=== PATIENT | female | born 1960 | race Caucasian/White ===

== ENCOUNTER 2018-01-30 13:18 | Observation (INO) | payer OTHER, SELFPAY ==
--- NOTE | 2018-01-24 11:10 | EKG12_ITS ---
Test Reason : PREOP Blood Pressure : / mmHG Vent. Rate : 073 BPM Atrial Rate : 073 BPM P-R Int : 158 ms QRS Dur : 072 ms QT Int : 384 ms P-R-T Axes : 049 -04 011 degrees QTc Int : 423 ms Normal sinus rhythm Possible Left atrial enlargement Borderline ECG Confirmed by KIRBY HERNANDEZ, SUJATA ([id number]), news copy editor DONAL OAKES ([id number]) on 01/27/2018 2:46:02 PM Referred By: Dona Rust Confirmed By:SUJATA ORR MD
[2018-01-24 11:31] LABS: Prothrombin Time (Protime)PT. 13.6 SECONDS (11.7-14.9)
[2018-01-24 11:32] LABS: Partial Thromboplast Time 32.6 Seconds (24.1-36.2)
[2018-01-24 11:37] LABS: Hematocrit 39.1 % (37-47); Hemoglobin 13.3 g/dl (12.0-15.0); Mean Corpuscular Hgb 30.6 pg (27.0-32.0); Mean Corpuscular Volume 89.9 fL (81-99); Mean Platelet Vol. 10.8 fl (6.2-12.0); Platelet Count 229 K/mm3 (150-450); RBC Distribution Width SD 45.7 fl (35.1-43.9); Red Blood Count 4.35 M/mm3 (4.2-5.4); White Blood Count 6.7 K/mm3 (4.4-11.0)
[2018-01-24 11:39] LABS: Scan Indicated on CBC? Y/N NO
[2018-01-24 11:59] LABS: ALB/GLOB Ratio 0.9 RATIO (0.9-2.4); AST(SGOT) 13 U/L (15-37); Alanine Aminotransfer ALT/SGPT 21 U/L (13-56); Albumin, Serum 3.8 g/dL (3.2-5.0); Alkaline Phosphatase 97 U/L (45-117); Anion Gap 7 (5-15); BUN 13 mg/dL (7-18); BUN/Creat Ratio 18.5 RATIO (10-20); Calcium,Total 8.9 mg/dL (8.5-10.1); Chloride 108 mmol/L (98-107); EST Glomerular Filtration Rate 90 mL/min (>60); Est Glom Filt Rate - Afr Amer 109 mL/min (>60); Globulin 4.1 g/dL (2.2-4.2); Glucose 104 mg/dL (74-106); Potassium 4.1 mmol/L (3.5-5.1); Protein, Total 7.9 g/dL (6.4-8.2); Sodium Level 142 mmol/L (136-145)
[2018-01-30] VITALS (12 sets, daily range): BP systolic 107–142; BP diastolic 52–79; PULSE 80–107; RESP 16–20; TEMP 35.9–37.3; O2SAT 91–100; BMI 32.2
--- NOTE | 2018-01-30 10:10 | HYST_PTH ---
PATIENT: GÉNESIS GLODSTEIN LOC: MS3 U#:[id number] AGE/SX: 58/F ROOM: UT323 RE01/30/[address]: Dr. Dona Agustin MD : [id number] BED: 1 DIS: 01/31/2018 SPEC #: [id number] RECD: 01/30/18 15:26 STATUS: SHER LOPEZRaul #: [id number] BO: 01/30/18 10:[address]: Dona Doshi DEPT: SURGICAL PATHOLOGY RECD BY: Abdifatah Garcia ENTERED: 01/31/18 08:45 SP TYPE: HYSTERECT OTHR DR: Edna Rapp, MICA SIZER-C Tissues: Uterus, NOS Procedures: Surgery Specimen Level V HEADER OPERATION: Hysterectomy, lap assisted vaginal, posterior repair, BSO PRE-OP DIAGNOSIS: Uterovaginal prolapse, breast cancer TISSUE SUBMITTED: Uterus, bilateral tubes and ovaries MICROSCOPIC DIAGNOSIS Uterus, bilateral fallopian tubes and ovaries, vaginal hysterectomy and bilateral salpingo-oophorectomy and posterior repair: Cervix ? mild chronic cystic cervicitis. Endometrium ? cystic atrophic endometrium. Endometrial polyp ? benign endometrial polyp with cystic atrophic changes. Myometrium - no pathologic diagnosis. Bilateral fallopian tubes - no pathologic diagnosis. Bilateral ovaries - no pathologic diagnosis. Vaginal mucosa ? fragments of squamous mucosal with minimal chronic inflammation. SJ:lucas 02/03/18 MICROSCOPIC DESCRIPTION Slides are reviewed. GROSS DESCRIPTION Received in fixative is one container labeled with the patient's name and designated uterus. The specimen consists of a uterus with attached cervix and attached right and left fallopian tubes and ovaries. Also present free in the container are three glistening fragments of vaginal mucosa measuring in aggregate 5 x 3 x 0.5 cm. The uterus with cervix measures 9 x 5 x 3.6 cm and weighs 86.7 gm. The ectocervix is grossly unremarkable. The cervical os is oval in contour. The endocervical canal is grossly unremarkable and measures 3 cm in length. The triangular endometrial cavity measures 3 x 2 cm. The anterior endometrial surface contains a flat, pink polyp measuring 2.5 x 1.6 x 0.6 cm. The myometrium immediately beneath the polyp is not indurated. The [place] endometrial surface is light angulo and glistening and measures up to 0.2 cm in thickness. The myometrium measures 1.5 cm in average thickness and is free of mass lesions. The right ovary is pink-angulo and has a crinkled external surface and measures 3 x 2 x 1.2 cm. Serial sections do not reveal mass lesions. The adjacent right fallopian tube measures 6 cm in length and 0.5 cm in average diameter. No tubo-ovarian adhesions are identified. The left ovary is similar in appearance to the right ovary and measures 3 x 2.2 x 1 cm. Serial sections likewise do not reveal mass lesions. The adjacent left fallopian tube is similar in appearance to right fallopian tube and measures 6 cm in length and 0.6 cm in average diameter. A normal fimbriated end is present. Licensing Registration Examiner sections are submitted in ten cassettes as follows: 1 - anterior cervix, 2 - posterior cervix, 3 - anterior uterine wall, 4 & 5 ? anterior uterine wall with polyp, 6 & 7 - posterior uterine wall, 8 ? right fallopian tube and ovary, 9 ? left fallopian tube and ovary, 10 ? vaginal mucosa. Note, the endometrial polyp is submitted in its entirety. / AM:lucas 01/31/18 TC:5 CPT: 94667
[2018-01-30] MEDS: Vasopressin 20 UNITS/ML Vial (10:45)
[2018-01-30] MEDS: Bupivacaine Mpf 0.5% 30 ML VIAL (12:35)
[2018-01-30] MEDS: Ketorolac 30 MG/ML Syringe IV ×2 (13:52→19:39)
[2018-01-30] MEDS: Dextrose 5%-Lactated Ringers 1,000 ML 125 ML IV ×2 (13:55→18:22)
[2018-01-30] MEDS: Enoxaparin 40 MG/0.4 ML Syringe SC (19:39)
[2018-01-30] MEDS: 0.9% NaCl Peripheral Flush Adult/Peds IV (19:39)
--- NOTE | 2018-01-30 21:47 | OP.PCM_ITS ---
Problem List (1) Uterovaginal prolapse, incomplete Status: Acute (2) Rectocele Status: Acute (3) BRCA1 gene mutation positive Status: Acute Report of Operation Date of Procedure: 01/30/18 Pre-Operative Diagnosis: Uterovaginal prolapse, Rectocele, history of ER positive breast cancer, BRCA1 mutation carrier Post-Operative Diagnosis: Uterovaginal prolapse, rectocele, history of ER positive breast cancer, BRCA1 mutation carrier Surgery/Procedure Performed:: Laparoscopic assisted vaginal hysterectomy, Lott 's culdoplasty, bilateral salpingo-oophorectomy, posterior repair, cystoscopy Description of Surgical Findings:: Normal appearing tubes, ovaries and uterus. pressure tank operator: Leatha Rees Anesthesiologist: Ishmael Jackson Specimen's removed: uterus, cervix, tubes and ovaries Drains: Urine 110 ml Estimated Blood Loss (mL): 150 ml Fluids Replaced: 1800 ml Description of Procedure: Indications: Ms. Vela is a 58-year-old para 2 postmenopausal female with a history of ER positive breast cancer and BRCA1 mutation with uterovaginal prolapse and rectocele. She was counseled regarding management options of prolapse and declined observation or pessary. She ultimately opted to proceed with hysterectomy, bilateral salpingo-oophorectomy and posterior repair. Risks , benefits, indications and alternatives of procedure were reviewed at length. Her signed. Procedure: The patient was taken to the operating room and sign was performed. She is placed in dorsal supine position and induced under general anesthesia and intubated. She is then repositioned to dorsolithotomy and examination under anesthesia was performed. The perineum and abdomen were prepped and draped in sterile fashion. Pascual catheter was placed into the bladder. Timeout was performed. The patient was placed into high lithotomy weighted speculum placed in the vagina and the cervix grasped the anterior cervical lip using a single-tooth tenaculum. A Conn cannula was placed and secured to the tenaculum for uterine manipulation. The speculum was removed from the vagina and the patient placed into low lithotomy. Attention was turned to the abdomen. An infraumbilical incision was made and Veress needle was placed with successful hanging drop test and no aspirate. The abdomen was insufflated to 15 mmHg. The Veress needle was removed and the 5 mm port was placed under laparoscopic guidance confirming entry into the abdominal cavity. A second and third incisions were made in the right and left lower quadrants respectively followed by 5 mm port placement at those sites. The patient was placed into an Trendelenburg and the abdomen was normal-appearing and on inspection. Attention was then turned to the left adnexa and the infundibulopelvic ligament was clamped coagulated and cut using the Enseal device and salpingo- oophorectomy performed. The round ligament was coagulated and cut. The anterior broad ligament was opened and the uterine vessels skeletonized. The bladder flap was created the broad ligament was taken down using Enseal device. The ureter was visualized on the left. The uterine vessels were coagulated. In similar fashion attention was turned to the right and salpingo-oophorectomy was performed along with opening of the broad ligament, uterine vessel skeletonization and completion of the bladder flap. The uterine vessels were coagulated at the level of the cervix. Attention was then turned to the pelvis and the abdomen was desufflated. The patient was placed into high lithotomy and the Herve cannula was removed. A circumferential incision was made around the cervix and the vesicouterine space was developed and the anterior cul-de-sac peritoneum was identified and sharply entered. Curved Teresa was placed at the site. Attention was turned to the posterior vagina and the posterior cul-de-sac was entered sharply using curved King scissors. A weighted speculum was placed into the posterior cul-de-sac. The uterosacral ligament were Barbie clamped cut and suture ligated using 0 Vicryl. Similarly this was done using the at the cardinal ligament and the uterine vessels with a delivery of the uterus and cervix with the tubes and ovaries en bloc. Lott culdoplasty was performed using 2-0 Prolene x 2 internally and 0 Vicryl externally. The vaginal cuff was reapproximated using 0 Vicryl serial figure of 8 sutures. The Lott's external sutures were then tied. Proceeded with the rectocele repair. A transverse incision was made the introitus where it meets the peritoneum and at midline the vaginal mucosa was dissected from the underlying supportive tissue using Metzenbaum scissors. Midline cut was made using the Metzenbaum scissors above the level of the rectocele sac. The sac was dissected from the underlying fascia and the rectocele was reduced with reapproximation of the fascial tissue using 2-0 Vicryl simple interrupted sutures. Excess vaginal tissue was excised. The vagina hernia and were reapproximated using 0 Vicryl. He was then performed demonstrating E flux out of bilateral ureters. There is no evidence of suture within the bladder following global visualization. There was turned to the abdomen and the skin was closed using 4-0 Monocryl. Additional 10 cc of 1% lidocaine was injected locally for additional analgesia. Steri-Strips and OpSite dressings were placed over the incisions. Patient was then repositioned to dorsal supine position, awakened, extubated and transferred to the recovery room without complication. Sponge, instrument and needle counts were correct ?2. The patient tolerated the procedure well. - Admit VTE Documentation VTE Present on Admission: No VTE Mechan Device Prophylaxis: SCD's VTE Pharm Prophylaxis ordered?: No
--- NOTE | 2018-01-30 22:37 | PCM.PN.OB ---
Patient Problems: Active and Suspected Problems (Last Reviewed 11/20/17 @ 11:08 by Dahlia Estrada) Uterovaginal prolapse, incomplete (Acute) Rectocele (Acute) Subjective: Pain is minimal. OOB and steady on her feet. Tolerated a regular diet for dinner. No flatus yet. No complaints. Objective: AVSS - Physical Exam General: Alert, Oriented x3, Cooperative, No apparent distress HEENT: Atraumatic, Normocephalic Abdomen: Soft, Non Tender, Non-Distended Extremities: No edema, No Calf Tenderness Neurological: Neuro grossly intact Psych/Mental Status: Normal Affect, Appropriate, Alert and oriented to time, place, person, mood and affect Vital Signs Temp Pulse Resp BP Pulse Ox 99.2 F H 107 H 16 130/71 H 97 01/30/18 18:33 01/30/18 18:33 01/30/18 18:33 01/30/18 18:33 01/30/18 18:33 Oxygen Delivery Method Room Air Weight: 85.2 kg Body Mass Index (BMI) 32.2 Intake and Output for Last 24 Hours 01/28/18 01/29/18 01/30/18 23:59 23:59 23:59 Intake Total 3171 / 3171 Output Total 1375 / 1375 Balance 1796 / 1796 Medical Necessity - Tobacco Use Smoking Status: Never smoker Tobacco Use: Non-smoker Assessment/Plan Active and Suspected Problems (Last Reviewed 11/20/17 @ 11:08 by Dahlia Estrada) Uterovaginal prolapse, incomplete (Acute) Rectocele (Acute) 58yo s/p LAVH, BS, posterior repair doing well. -Routine postop care -Abundant urine output, d/c IV fluids
[2018-01-31] MEDS: 0.9% NaCl Peripheral Flush Adult/Peds IV (01:53)
[2018-01-31] MEDS: Ketorolac 30 MG/ML Syringe IV (01:54)
[2018-01-31 02:15] VITALS: BP 134/73; PULSE 92; RESP 18; TEMP 36.7; O2SAT 97
[2018-01-31 06:14] LABS: Hematocrit 34.8 % (37-47); Hemoglobin 11.5 g/dl (12.0-15.0); Mean Corpuscular Hgb 29.8 pg (27.0-32.0); Mean Corpuscular Volume 90.2 fL (81-99); Mean Platelet Vol. 10.6 fl (6.2-12.0); Platelet Count 191 K/mm3 (150-450); RBC Distribution Width CV 13.8 % (11.6-14.6); RBC Distribution Width SD 45.4 fl (35.1-43.9); Red Blood Count 3.86 M/mm3 (4.2-5.4); White Blood Count 10.9 K/mm3 (4.4-11.0)
[2018-01-31 06:20] LABS: Scan Indicated on CBC? Y/N NO
[2018-01-31 07:39] VITALS: BP 122/68; PULSE 62; RESP 18; TEMP 36.7; O2SAT 98
[2018-01-31] MEDS: Ketorolac 10 MG Tablet PO ×2 (07:43→11:28)
[2018-01-31 07:57] VITALS: O2SAT 97
--- NOTE | 2018-01-31 07:59 | PCM.DC.VHY ---
Discharge Diet: No Restrictions Discharge Activity: Return to Normal Activity, May not drive while taking narcotic pain medications., May Shower, - - No tub bath for 2 weeks May resume sexual activity in: 6 weeks Lifting Restrictions: 10 lb Call your doctor if your incision/area has: Continuous Slow Oozing, Sudden Increased Bleeding, Increased Pain/ Swelling, Increased Redness, Foul Smelling Discharge Call your doctor if you observe: Fever of 101 or Higher, Inability to urinate, Inability to have a bowel movement, Using more than one pad per hour, Shortness of breath, Chest pain, Calf discomfort, Uncontrolled pain Suture Line Care: Avoid Pulling/Pushing Remove Dressing in (days):: 1 - Remove outer dressing Cleanse incision/area with: Soap & Water Additional Dressing/Incision Instructions:: Remove steristrips in shower 3-5 days after surgery Allergies/Adverse Reactions: Allergies morphine Allergy (Verified 01/23/18 10:13) Hives Medications to take at Discharge Anastrozole [Arimidex] 1 mg PO DAILY #30 tab 07/24/17 Docusate Sodium [Colace] 100 mg PO BID PRN PRN #60 cap 01/30/18 Hydrocodone Bitart/Apap 5-325 [[place] 5/325] 1 - 2 tablet PO Q4H PRN PRN 3 Days #28 tablet 01/30/18 Ibuprofen 600 mg PO TID PRN #30 tab 01/30/18 The following prescriptions were given: Hydrocodone Bitart/Apap 5-325 [[place] 5/325] 1 - 2 tablet PO Q4H PRN PRN 3 Days #28 tablet PRN Reason: Mod-Severe Pain (-07/16) Docusate Sodium [Colace] 100 mg PO BID PRN PRN #60 cap PRN Reason: Constipation Ibuprofen 600 mg PO TID PRN #30 tab PRN Reason: Pain Primary Care Physician: Edna Rapp NP-C [Primary Care Provider] - Please Follow Up With: Dona Rust MD When: 1-2 weeks
--- NOTE | 2018-01-31 08:02 | DCINST_ITS ---
Discharge Diet: No Restrictions Discharge Activity: Return to Normal Activity, May not drive while taking narcotic pain medications., May Shower, - - No tub bath for 2 weeks May resume sexual activity in: 6 weeks Lifting Restrictions: 10 lb Call your doctor if your incision/area has: Continuous Slow Oozing, Sudden Increased Bleeding, Increased Pain/ Swelling, Increased Redness, Foul Smelling Discharge Call your doctor if you observe: Fever of 101 or Higher, Inability to urinate, Inability to have a bowel movement, Using more than one pad per hour, Shortness of breath, Chest pain, Calf discomfort, Uncontrolled pain Suture Line Care: Avoid Pulling/Pushing Remove Dressing in (days):: 1 - Remove outer dressing Cleanse incision/area with: Soap & Water Additional Dressing/Incision Instructions:: Remove steristrips in shower 3-5 days after surgery Allergies/Adverse Reactions: Allergies morphine Allergy (Verified 01/23/18 10:13) Hives Medications to take at Discharge Anastrozole [Arimidex] 1 mg PO DAILY #30 tab 07/24/17 Docusate Sodium [Colace] 100 mg PO BID PRN PRN #60 cap 01/30/18 Hydrocodone Bitart/Apap 5-325 [[place] 5/325] 1 - 2 tablet PO Q4H PRN PRN 3 Days # 28 tablet 01/30/18 Ibuprofen 600 mg PO TID PRN #30 tab 01/30/18 The following prescriptions were given: Hydrocodone Bitart/Apap 5-325 [[place] 5/325] 1 - 2 tablet PO Q4H PRN PRN 3 Days # 28 tablet PRN Reason: Mod-Severe Pain (-07/16) Docusate Sodium [Colace] 100 mg PO BID PRN PRN #60 cap PRN Reason: Constipation Ibuprofen 600 mg PO TID PRN #30 tab PRN Reason: Pain Primary Care Physician: Edna Rapp NP-C [Primary Care Provider] - Please Follow Up With: Dona Rust MD When: 1-2 weeks
--- NOTE | 2018-01-31 08:02 | PCM.DC.SUM ---
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 She underwent a laparoscopic assisted vaginal hysterectomy with bilateral salpingo-oophorectomy and culdoplasty, rectocele repair and cystoscopy. Her post-operative course was unremarkable and she was discharged to home on post-operative day #1. Discharge Diet: No Restrictions Discharge Activity: Return to Normal Activity, May not drive while taking narcotic pain medications., May Shower, - - No tub bath for 2 weeks May resume sexual activity in: 6 weeks Call your doctor if your incision/area has: Continuous Slow Oozing, Sudden Increased Bleeding, Increased Pain/ Swelling, Increased Redness, Foul Smelling Discharge Call your doctor if you observe: Fever of 101 or Higher, Inability to urinate, Inability to have a bowel movement, Using more than one pad per hour, Shortness of breath, Chest pain, Calf discomfort, Uncontrolled pain Suture Line Care: Avoid Pulling/Pushing Remove Dressing in (days):: 1 - Remove outer dressing Cleanse incision/area with: Soap & Water Additional Dressing/Incision Instructions:: Remove steristrips in shower 3-5 days after surgery Home Medications: Medications to take at Discharge Anastrozole [Arimidex] 1 mg PO DAILY #30 tab 07/24/17 Docusate Sodium [Colace] 100 mg PO BID PRN PRN #60 cap 01/30/18 Hydrocodone Bitart/Apap 5-325 [[place] 5/325] 1 - 2 tablet PO Q4H PRN PRN 3 Days #28 tablet 01/30/18 Ibuprofen 600 mg PO TID PRN #30 tab 01/30/18 Following Prescrptions Were Given to Patient: Hydrocodone Bitart/Apap 5-325 [[place] 5/325] 1 - 2 tablet PO Q4H PRN PRN 3 Days #28 tablet PRN Reason: Mod-Severe Pain (-07/16) Docusate Sodium [Colace] 100 mg PO BID PRN PRN #60 cap PRN Reason: Constipation Ibuprofen 600 mg PO TID PRN #30 tab PRN Reason: Pain Primary Care Physician: Edna Rapp NP-C [Primary Care Provider] - Please Follow Up With: Dona Rust MD When: 1-2 weeks Medical Necessity - Tobacco Use Smoking Status: Never smoker Tobacco Use: Non-smoker Meaningful Use Info Meaningful Use Diagnoses (Choose all that apply): None applicable
--- NOTE | 2018-01-31 08:05 | DS.PCM_ITS ---
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 She underwent a laparoscopic assisted vaginal hysterectomy with bilateral salpingo-oophorectomy and culdoplasty, rectocele repair and cystoscopy. Her post-operative course was unremarkable and she was discharged to home on post-operative day #1. Discharge Diet: No Restrictions Discharge Activity: Return to Normal Activity, May not drive while taking narcotic pain medications., May Shower, - - No tub bath for 2 weeks May resume sexual activity in: 6 weeks Call your doctor if your incision/area has: Continuous Slow Oozing, Sudden Increased Bleeding, Increased Pain/ Swelling, Increased Redness, Foul Smelling Discharge Call your doctor if you observe: Fever of 101 or Higher, Inability to urinate, Inability to have a bowel movement, Using more than one pad per hour, Shortness of breath, Chest pain, Calf discomfort, Uncontrolled pain Suture Line Care: Avoid Pulling/Pushing Remove Dressing in (days):: 1 - Remove outer dressing Cleanse incision/area with: Soap & Water Additional Dressing/Incision Instructions:: Remove steristrips in shower 3-5 days after surgery Home Medications: Medications to take at Discharge Anastrozole [Arimidex] 1 mg PO DAILY #30 tab 07/24/17 Docusate Sodium [Colace] 100 mg PO BID PRN PRN #60 cap 01/30/18 Hydrocodone Bitart/Apap 5-325 [[place] 5/325] 1 - 2 tablet PO Q4H PRN PRN 3 Days # 28 tablet 01/30/18 Ibuprofen 600 mg PO TID PRN #30 tab 01/30/18 Following Prescrptions Were Given to Patient: Hydrocodone Bitart/Apap 5-325 [[place] 5/325] 1 - 2 tablet PO Q4H PRN PRN 3 Days # 28 tablet PRN Reason: Mod-Severe Pain (-07/16) Docusate Sodium [Colace] 100 mg PO BID PRN PRN #60 cap PRN Reason: Constipation Ibuprofen 600 mg PO TID PRN #30 tab PRN Reason: Pain Primary Care Physician: Edna Rapp NP-C [Primary Care Provider] - Please Follow Up With: Dona Rust MD When: 1-2 weeks Medical Necessity - Tobacco Use Smoking Status: Never smoker Tobacco Use: Non-smoker Meaningful Use Info Meaningful Use Diagnoses (Choose all that apply): None applicable
--- NOTE | 2018-01-31 08:35 | PCM.PN.OB ---
Patient Problems: Active and Suspected Problems (Last Reviewed 11/20/17 @ 11:08 by Dahila Estrada) Uterovaginal prolapse, incomplete (Acute) Rectocele (Acute) Subjective: No issues overnight. Shweta feels well this morning and has a good appetite. Tolerated regular breakfast and is passing gas. Pascual removed this morning, but no void yet. Denies chest pain, shortness of breath. Objective: AVSS - Physical Exam General: Alert, Oriented x3, Cooperative, No apparent distress HEENT: Atraumatic, Normocephalic Lungs: Clear to auscultation, Normal air movement Cardiovascular: Regular rate, Regular Rhythm, Normal S1, Normal S2 Abdomen: Bowel Sounds Present, Soft, Non Tender, Non-Distended Extremities: No edema, No Calf Tenderness Neurological: Neuro grossly intact Psych/Mental Status: Normal Affect, Appropriate, Alert and oriented to time, place, person, mood and affect Vital Signs Temp Pulse Resp BP Pulse Ox 98.0 F 62 18 122/68 H 97 01/31/18 07:39 01/31/18 07:39 01/31/18 07:39 01/31/18 07:39 01/31/18 07:57 Oxygen Delivery Method Room Air Weight: 85.2 kg Body Mass Index (BMI) 32.2 Intake and Output for Last 24 Hours 01/29/18 01/30/18 01/31/18 23:59 23:59 23:59 Intake Total 3171 / 3171 3303 / 3303 Output Total 1375 / 1375 3700 / 3700 Balance 1796 / 1796 -397 / -397 Laboratory Tests Past 24 Hrs 01/31/18 05:15 WBC 10.9 RBC 3.86 L Hgb 11.5 L Hct 34.8 L MCV 90.2 MCH 29.8 MCHC 33.0 RDW 13.8 RDW Differential 45.4 H Plt Count 191 MPV 10.6 Medical Necessity - Tobacco Use Smoking Status: Never smoker Tobacco Use: Non-smoker Assessment/Plan Active and Suspected Problems (Last Reviewed 11/20/17 @ 11:08 by Dahlia Estrada) Uterovaginal prolapse, incomplete (Acute) Rectocele (Acute) 58yo POD#1 s/p LAVH, BS, posterior repair doing well. -Routine postop care -Voiding trial -Anticipate d/c later today
[2018-01-31 12:12] VITALS: BP 131/72; PULSE 74; RESP 18; TEMP 36.7; O2SAT 98
== END 2018-01-31 13:10 | disposition home or self-care (01) ==
LOC: SDC 14:02 → MS3 01-31 06:23
PROVIDERS: Admitting Provider Obstetrics & Gynecology; Family Provider Nurse Practitioner Primary Care; PCP Nurse Practitioner Primary Care; Visit Provider Obstetrics & Gynecology
PROC: 0UT9FZZ Resection of Uterus, Via Natural or Artificial Opening With Percutaneous Endoscopic Assistance (ICD-10-PCS; CPT 57250; principal; 2018-01-30 09:45)
DX: N81.2 Incomplete uterovaginal prolapse (principal); Z85.3 Personal history of malignant neoplasm of breast; Z17.0 Estrogen receptor positive status [ER+]; Z92.3 Personal history of irradiation; Z85.828 Personal history of other malignant neoplasm of skin; Z79.899 Other long term (current) drug therapy
CPT/HCPCS: 57250; 57268; 58552; 36415; 80053; 85027; 85610; 85730; 86850; 86900; 88307; 93005; 96361; 96372; 96374; 96376; 99218; J7120; A4216; G0378; G0379

== ENCOUNTER → 2018-03-11 11:15 | Outpatient (CLI) | payer OTHER, SELFPAY ==
--- NOTE | 2018-03-11 11:15 | DT_ITS ---
This patient was seen during an EMR downtime March 10, 2018 - March 17, 2018. This patient may have a combination of paper and electronic documentation or all paper documentation. All documentation is viewable within the e-chart portion of [facility] for each patient visit.
== END ==
PROVIDERS: Family Provider Nurse Practitioner Primary Care; PCP Nurse Practitioner Primary Care; Visit Provider Obstetrics & Gynecology
DX: N39.0 Urinary tract infection, site not specified (principal)
CPT/HCPCS: 87086; 87088

== ENCOUNTER → 2018-05-30 13:12 | Outpatient (CLI) | payer OTHER, SELFPAY | PROVIDERS: Visit Provider Nurse Practitioner Family | DX: R22.2 Localized swelling, mass and lump, trunk (principal); Z85.3 Personal history of malignant neoplasm of breast | CPT/HCPCS: 71552; A9585 ==

== ENCOUNTER → 2018-12-08 10:35 | Outpatient (CLI) | payer OTHER, SELFPAY ==
[2018-12-03 12:59] VITALS: BMI 32.8
[2018-12-08 11:07] LABS: Bacteria 0 SEEN /hpf (None Seen); Mucous, Urine 0 SEEN /hpf (<or=2+); White Blood Cells 0 SEEN /hpf (0-5)
[2018-12-08 14:01] LABS: Color, Urine Yellow (Yellow); Glucose, Dipstick Normal (Normal); Ketone-Dipstick Negative (Negative); Leukocyte Esterase-Dipstick Negative /ul (Negative); Nitrite-Dipstick Negative (Negative); Occult Blood-Urine 25 /ul (Negative); Protein-Dipstick Negative (Negative); Urine Bilirubin Dipstick Negative (Negative); Urine Clarity Clear (Clear); Urine Urobilinogen Normal (Normal)
[2018-12-08 14:03] LABS: Red Blood Cells-Urine 0-5 SEEN /hpf (0-5); Squamous Epithelial Cells - UA 0-5 SEEN /hpf (5-10)
== END ==
PROVIDERS: Visit Provider Obstetrics & Gynecology
DX: N39.0 Urinary tract infection, site not specified (principal)
CPT/HCPCS: 81001; 87086; 87088

== ENCOUNTER → 2019-01-01 12:45 | Outpatient (CLI) | payer OTHER, SELFPAY ==
[2018-12-03 12:59] VITALS: BMI 32.8
--- NOTE | 2019-01-01 12:48 | CT_ITS ---
STUDY: CT ABDOMEN AND PELVIS WITHOUT CONTRAST REASON FOR EXAM: Female, 58 years old. Left-sided abdominal pain. History of prior hysterectomy and a bilateral breast cancers. RADIATION DOSAGE (If Supplied By Facility): CTDIvol = ( 11.09 ) mGy, DLP = ( 758.85 ) mGycm TECHNIQUE: Transaxial images were obtained from the dome of the diaphragm to the symphysis pubis with oral contrast, and without intravenous contrast. Sagittal and coronal images were reconstructed. Individualized dose optimization techniques were used for this CT. COMPARISON: None. FINDINGS: The visualized lung bases are unremarkable. The visualized portions of the heart are within normal limits. There is a 1.3 cm x 1.5 cm cyst in the inferior lateral aspect of the left lobe of the liver. Normal gallbladder and extrahepatic biliary system. Normal spleen. Normal pancreas. Normal bilateral adrenal glands. Mild degree of bilateral hydronephrosis slightly worse on the left side. Normal visualized stomach. Normal small intestine. Normal colon. There is non-visualization of the appendix. There is scattered atherosclerotic calcification of the abdominal aorta, without a demonstrated aneurysm. Normal inferior vena cava. Normal retroperitoneum. The urinary bladder is empty. There is absence of the uterus consistent with a prior hysterectomy. Phleboliths are seen in the pelvis. There is a small umbilical hernia containing fat. Normal osseous structures. CT/Abdomen/Pelvis without Cont IMPRESSION: Mild degree of bilateral hydronephrosis slightly worse on the left side. Small cyst in the left lobe of the liver. Electronically Signed: Hema Gonzales, at 12:59 EDT , Service support ,
== END ==
PROVIDERS: Family Provider Nurse Practitioner Primary Care; PCP Nurse Practitioner Primary Care; Referring Provider Obstetrics & Gynecology; Visit Provider Obstetrics & Gynecology
DX: R10.9 Unspecified abdominal pain (principal); R19.00 Intra-abdominal and pelvic swelling, mass and lump, unspecified site
CPT/HCPCS: 74176

== ENCOUNTER 2019-04-12 15:32 | Inpatient (IN) | payer OTHER, SELFPAY ==
[2018-12-03 12:59] VITALS: BMI 32.8
[2019-04-12] VITALS (21 sets, daily range): BP systolic 110–140; BP diastolic 47–75; PULSE 80–99; RESP 11–23; TEMP 36.4–37.3; O2SAT 98–100; BMI 30.9; BMI 30.7
--- NOTE | 2019-04-12 16:16 | CT_ITS ---
STUDY: CT ABDOMEN AND PELVIS WITH CONTRAST REASON FOR EXAM: Female, 59 years old. Abdominal pain. Dark stools. Weakness, jaundice, elevated LFTs. Low hemoglobin. Bilateral breast CA. RADIATION DOSAGE (If Supplied By Facility): CTDIvol = ( 12.86 ) mGy, DLP = ( 805.83 ) mGycm TECHNIQUE: Transaxial images were obtained from the dome of the diaphragm to the symphysis pubis without oral contrast. 100 IV/Oral Isovue 300 was administered. Sagittal and coronal images were reconstructed. Individualized dose optimization techniques were used for this CT. COMPARISON: 01/01/2019. FINDINGS: Lung bases are clear. Visualized heart is normal. There is marked intrahepatic biliary duct dilation, new compared to the prior study. Stable 1.6 cm cyst is noted in the lateral segment. No hepatic mass is identified. Mild hepatic hilar adenopathy measures up to 9 mm in short axis. There is no extrahepatic biliary duct dilation. Distal common duct measures 5 mm. The gallbladder is contracted. There is a 5.1 x 2.8 cm pancreatic tail mass. This was not seen on the prior noncontrast study. There is no pancreatic duct dilation. The spleen and adrenal glands are unremarkable. Renal parapelvic cysts are noted bilaterally. The kidneys are otherwise unremarkable. No stones or hydronephrosis. The aorta is normal in caliber. There is trace free fluid in the pelvis. No free air or organized collection. No bowel obstruction or inflammatory change. Normal appendix. Urinary bladder is unremarkable. Normal abdominal wall. Normal osseous structures. CT/Abdomen/Pelvis WITH Contrast IMPRESSION: 1. A 5 cm pancreatic tail mass. 2. Marked intrahepatic biliary duct dilation, possibly due to lymph node or choledochal /metastasis. Dr. Chase discussed the findings with Dr. Bailey at 6:56 PM. N.B. : The above information has been verbally conveyed by Arleen Chase MD to Dr. Devi Bailey MD, on 04/12/2019 18:57:01 (ET). Electronically Signed: Arleen Chase MD at 18:58 EDT Tel , Service support ,
--- NOTE | 2019-04-12 16:17 | ED.VIS.GEN ---
History of Present Illness Chief Complaint: General Illness Detail of Chief Complaint: Abdominal pain, jaundice, itching Informant: Patient, Family Onset: Month(s) Narrative: Patient has history of bilateral breast cancer and skin cancer. Patient states that she has had continued chronic abdominal pain with no significant definitive cause being found for several months. Over the past 2 or 3 weeks she has had itching and saw her primary care physician. At that time is felt to be secondary to allergies and was given a course of prednisone and Vistaril. Patient states of the last 4 to 7 days her skin has become more yellow in color. She states overall she just does not feel well. She has had prior hysterectomy and bilateral oophorectomy. CT scan from December of this year was reviewed and did not show any acute changes in the gallbladder or pancreas. - Past Medical History (1) Breast cancer, right Status: Acute (2) Mass of chest wall, left Status: Acute (3) Rectocele Status: Acute (4) Cancer of left breast Status: Chronic Past Medical History - Allergies and Home Meds Allergies/Adverse Reactions: Allergies morphine Allergy (Verified 04/12/19 15:37) Hives Prior records reviewed: Yes Past Medical History: - - Reviewed Surgical History: hysterectomy Lives: Spouse/ Significant Other Smoking Status: Former smoker - Family History Maternal Family History: Family History (Last Reviewed 12/03/18 @ 12:58 by Dahlia Estrada) Sister Breast cancer Sister Breast cancer Family History: Reports: Unknown Review of Systems General: Denies: Chills, Fever Cardiovascular: Denies: Chest pain, Palpitations, Heart racing Respiratory: Reports: Dyspnea, - - Dyspnea on exertion.. Denies: Cough, Sputum Gastrointestinal: Reports: Abdominal pain, - - Stools appear dark in color.. Denies: Nausea, Vomiting, Diarrhea Genitourinary: Reports: - - Urine appears dark.. Denies: Dysuria Skin: Reports: Rash Neurological: Denies: Headache Physical Exam Vital Signs/Narrative: Vital Signs Temp Pulse Resp BP Pulse Ox 04/12/19 16:01 81 11 L 125/63 H 100 04/12/19 15:35 97.6 F L 91 18 117/66 100 General: Well nourished, Well developed Head: Normocephalic, Atraumatic Eyes: Scleral icterus ENT: Moist mucous membranes Cardiovascular: Regular rate, Regular rhythm Respiratory: No distress, CTA bilaterally Abdomen: Soft, - - Mild diffuse tenderness palpation with no guarding or rebound. Hypoactive but present bowel sounds are noted. Extremities: Nontender Skin: Jaundice, - - Superficial abrasions from scratching with her pruritus are noted to the extremities and upper chest. Neurological: Alert, Oriented x3 Psychological: Normal affect Diagnostic/Tx/Re-eval Abnormal Lab Results 04/12/19 04/12/19 04/12/19 16:11 16:11 16:40 WBC 7.7 RBC 2.21 L Hgb 5.5 L* Hct 18.0 L MCV 81.4 MCH 24.9 L MCHC 30.6 L RDW 16.4 H RDW Differential 48.8 H Plt Count 294 MPV 11.4 Immature Gran % (Auto) 0.800 Neut % (Auto) 76.4 H Lymph % (Auto) 15.3 L [place] % (Auto) 6.5 Eos % (Auto) 0.7 Baso % (Auto) 0.3 Absolute Neuts (auto) 5.9 Absolute Lymphs (auto) 1.17 Total Counted Not Reportable Sodium 138 Potassium 3.2 L Chloride 105 Carbon Dioxide 24.0 Anion Gap 9 BUN 17 Creatinine 0.58 Estim Creat Clear Calc 87.96 Est GFR (MDRD) Af Amer 135 Est GFR (MDRD) Non-Af 111 BUN/Creatinine Ratio 29.1 H Glucose 140 H Calcium 8.0 L Total Bilirubin 5.40 H Direct Bilirubin 4.76 H AST 42 H ALT 149 H Alkaline Phosphatase 273 H Total Protein 5.8 L Albumin 2.6 L Globulin 3.2 Lipase 135 Urine Color Yellow Urine Clarity Clear Urine pH 6.5 Ur Specific [place] 1.005 Urine Protein Negative Urine Glucose (UA) Normal Urine Ketones Negative Urine Occult Blood 10 H Urine Nitrite Positive H Urine Bilirubin 3 H Urine Urobilinogen 1 H Ur Leukocyte Esterase 100 H Urine RBC 0 SEEN Urine WBC 0-5 SEEN Ur Squamous Epith Cells 0 SEEN Urine Bacteria 2+ Urine Mucus 0 SEEN Blood Type Antibody Screen Crossmatch 04/12/19 16:57 WBC RBC Hgb Hct MCV MCH MCHC RDW RDW Differential Plt Count MPV Immature Gran % (Auto) Neut % (Auto) Lymph % (Auto) [place] % (Auto) Eos % (Auto) Baso % (Auto) Absolute Neuts (auto) Absolute Lymphs (auto) Total Counted Sodium Potassium Chloride Carbon Dioxide Anion Gap BUN Creatinine Estim Creat Clear Calc Est GFR (MDRD) Af Amer Est GFR (MDRD) Non-Af BUN/Creatinine Ratio Glucose Calcium Total Bilirubin Direct Bilirubin AST ALT Alkaline Phosphatase Total Protein Albumin Globulin Lipase Urine Color Urine Clarity Urine pH Ur Specific [place] Urine Protein Urine Glucose (UA) Urine Ketones Urine Occult Blood Urine Nitrite Urine Bilirubin Urine Urobilinogen Ur Leukocyte Esterase Urine RBC Urine WBC Ur Squamous Epith Cells Urine Bacteria Urine Mucus Blood Type O NEGATIVE Antibody Screen NEGATIVE Crossmatch See Detail Clinical Impression(s) from Imaging Studies Abdomen/Pelvis CT 04/12/19 16:16 IMPRESSION: 1. A 5 cm pancreatic tail mass. 2. Marked intrahepatic biliary duct dilation, possibly due to lymph node or choledochal /metastasis. Dr. Chase discussed the findings with Dr. Bailey at 6:56 PM. N.B. : The above information has been verbally conveyed by Arleen Chase MD to Dr. Devi Bailey MD, on 04/12/2019 18:57:01 (ET). Electronically Signed: Arleen Chase MD at 18:58 EDT Tel , Service support , ADDENDUM: 04/12/19 1905 IMPRESSION: 1. A 5 cm pancreatic tail mass. 2. Marked intrahepatic biliary duct dilation, possibly due to lymph node or choledochal /metastasis. Dr. Chase discussed the findings with Dr. Bailey at 6:56 PM. N.B. : The above information has been verbally conveyed by Arleen Chase MD to Dr. Devi Bailey MD, on 04/12/2019 18:57:01 (ET). Electronically Signed: Arleen Chase MD at 18:58 EDT Tel , Service support , Stool guaiac performed was negative. - Medical Decision Making Test results were discussed with patient and at bedside. She has seen Dr. Schwab here locally for cancer care. I spoke with Dr. Jara, on-call. He states that typically they would not admit the patient to get a biopsy, but because she is anemic and is getting blood she would need to be admitted. He asked that I ensure Dr. Palmer will be in town this week to perform an EGD and possible brushings from the ducts. I spoke with Dr. uL and as far as he knows her Estela will be available this week. I spoke with hospitalist regarding admission. ED Disposition - Plan for ED Patient: Disposition: Acute Care Hospital [facility] Diagnosis: Jaundice, Anemia, Pancreatic mass
[2019-04-12] MEDS: 0.9% Normal Saline 1,000 ML 150 ML IV ×2 (16:41→23:31)
[2019-04-12 16:44] LABS: Mucous, Urine 0 SEEN /hpf (<or=2+); Red Blood Cells-Urine 0 SEEN /hpf (0-5); Squamous Epithelial Cells - UA 0 SEEN /hpf (5-10)
[2019-04-12 16:48] LABS: Absolute Lymphocyte Count 1.17 X10^3/ul (0.83-4.51); Absolute Neutrophil Count 5.9 X10^3/uL (2.0-7.7); Basophil# 0.02 X10^3/uL; Basophil% 0.3 % (0-1); Eosinophil# 0.05 X10^3/uL; Eosinophils% 0.7 % (0-5); Lymphocyte # 1.17 X10^3/ul (4.0); Lymphocyte % 15.3 % (19-41); Mean Corp Hgb Conc 30.6 g/gl (32-36); Mean Corpuscular Hgb 24.9 pg (27.0-32.0); Mean Corpuscular Volume 81.4 fL (81-99); Mean Platelet Vol. 11.4 fl (6.2-12.0); Monocyte% 6.5 % (0-10); Neutrophil # 5.85 X10^3/uL (2.7-7.7); Neutrophil % 76.4 % (47-70); Platelet Count 294 K/mm3 (150-450); RBC Distribution Width CV 16.4 % (11.6-14.6); RBC Distribution Width SD 48.8 fl (35.1-43.9); Red Blood Count 2.21 M/mm3 (4.2-5.4); White Blood Count 7.7 K/mm3 (4.4-11.0)
[2019-04-12 16:49] LABS: POSITIVE COUNT YES; POSITIVE DIFFERENTIAL NO; POSITIVE MORPHOLOGY NO
[2019-04-12 16:50] LABS: AST(SGOT) 42 U/L (15-37); Alanine Aminotransfer ALT/SGPT 149 U/L (13-56); Albumin, Serum 2.6 g/dL (3.2-5.0); Alkaline Phosphatase 273 U/L (45-117); Anion Gap 9 (5-15); BUN 17 mg/dL (7-18); BUN/Creat Ratio 29.1 RATIO (10-20); Bilirubin, Direct 4.76 mg/dL (0.00-0.30); Chloride 105 mmol/L (98-107); Creatinine, Serum 0.58 mg/dL (0.55-1.02); EST Glomerular Filtration Rate 111 mL/min (>60); Est Glom Filt Rate - Afr Amer 135 mL/min (>60); Estimated Creatinine Clearance 87.96 ml/min; Globulin 3.2 g/dL (2.2-4.2); Glucose 140 mg/dL (74-106); Lipase 135 U/L (73-393); Potassium 3.2 mmol/L (3.5-5.1); Protein, Total 5.8 g/dL (6.4-8.2); Sodium Level 138 mmol/L (136-145)
[2019-04-12 16:51] LABS: Color, Urine Yellow (Yellow); Glucose, Dipstick Normal (Normal); Ketone-Dipstick Negative (Negative); Leukocyte Esterase-Dipstick 100 /ul (Negative); Nitrite-Dipstick Positive (Negative); Occult Blood-Urine 10 /ul (Negative); Protein-Dipstick Negative (Negative); Specific Gravity, Urine 1.005 (1.002-1.030); Urine Clarity Clear (Clear); Urine Urobilinogen 1 mg/dl (Normal); Urine pH 6.5 (5.0 - 8.0)
[2019-04-12 16:54] LABS: Hemoglobin 5.5 g/dl (12.0-15.0)
--- NOTE | 2019-04-12 16:54 | ED.RN ---
hgb 5.[address] churchill aware
[2019-04-12 16:58] LABS: Urine Bilirubin Dipstick 3 mg/dL (Negative)
[2019-04-12 16:59] LABS: Bacteria 2+ /hpf (None Seen); White Blood Cells 0-5 SEEN /hpf (0-5)
--- NOTE | 2019-04-12 23:19 | PCM.HP.STD ---
Problem List (1) Acute blood loss anemia Status: Acute (2) Hyperbilirubinemia Status: Acute (3) Pancreatic mass Status: Acute History of Present Illness Date of Admission: 04/12/19 Chief Complaint: MALAISE The patient is a 59 year old F with a significant history of Obesity; breast cancer initially with lumpectomy, chemotherapy and radiation, and following a recurrence, bilateral mastectomy and hysterectomy who presented to the emergency department with malaise for 1 month. Associated withher symptoms is jaundice; dark stools; dark urine; craving for ice; fatigue; and itchiness. She saw her PCP who gave her prednisone and hydroxyzine for itchiness. However the prednisone and hydroxyzine did not help her itchiness. Patient complained about abdominal pain that has been going after hysterectomy; about a year ago. Emergency department doctor report that rectal exams showed brown stool; and it was unremarkable otherwise. At the emergency department was found to have severe anemia with hemoglobin of 5.5. At the emergency department abdominal and pelvic CT was remarkable for a 5 cm pancreatic tail mass; intrahepatic biliary duct dilatation. Patient is well-known to Dr. Schwab oncologist. Importantly, the emergency department doctor discussed the case with Dr. Jara who recommended that Dr. Jacques, General Surgeon evaluate the patient for possible EGD and ERCP. Patient was started on blood transfusion while at the emergency department. 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 Family history of breast cancer (Chronic) Estrogen receptor positive status (ER+) (Chronic) Medical History: Medical History (Last Reviewed 04/13/19 @ 04:37 by Ambrose Gonzalez MD) Acquired absence of bilateral breasts and nipples Z90.13 BRCA2 gene mutation positive Z15.01, Z15.09 Breast cancer in female C50.919 Breast cancer of lower-outer quadrant of left female breast C50.512 Cyst of left kidney N28.1 Disproportion of reconstructed breast N65.1 Estrogen receptor positive status [ER+] Z17.0 Family history of breast cancer Z80.3 Late effect of radiation T66.XXXS RIGHT BREAST Personal history of breast cancer Z85.3 RIGHT BREAST Skin cancer C44.90 ON THE NOSE AND FOREHEAD Allergies morphine Allergy (Verified 04/12/19 15:37) Hives Home Medications: Ambulatory Orders Medication Instructions Recorded Hydroxyzine HCl 25 mg PO TID 04/12/19 Surgical History: Surgical History (Last Reviewed 04/13/19 @ 04:37 by Ambrose Gonzalez MD) History of left mastectomy Z98.890, Z90.12 LEFT SIMPLE MASTECTOMY WITH SENTINEL LYMPH NODE BIOPSY AND INJECTION OF METHYLENE BLUE TRACER BY DR JACQUES 06/14/2017 History of lumpectomy of right breast Z98.890 RIGHT LUMPECTOMY OF BREAST 2004, LUMPECTOMY REVISION FOR BETTER MARGINS 2004, LN NEGATIVE - ALSO HAD RADIATION THERAPY AND CHEMOTHERAPY History of right total mastectomy Z98.890, Z90.11 COMPLETION MASTECTOMY RIGHT BREAST BY DR NILA CROSS 06/14/2017 History of total hysterectomy Z90.710 Status post surgical removal of malignant neoplasm of skin Z98.890 NOSE AND FOREHEAD Surgical History: hysterectomy Lives: With Family Smoking Status: Never smoker Alcohol: None - *Family History Maternal Family History: Family History (Last Reviewed 04/13/19 @ 04:37 by Ambrose Gonzalez MD) Sister Breast cancer Sister Breast cancer Review of Systems Constitutional: Reports: Chills, Malaise, Fatigue. Denies: Fever, Weight Change HEENT: Denies: Head Aches, Sinus Congestion, Sinus Drainage Cardiovascular: Denies: Chest Pain, Palpitations Respiratory: Denies: Cough, Shortness of breath at rest, Sputum production Gastrointestinal: Reports: Abdominal Pain, Nausea. Denies: Vomiting Genitourinary: Denies: Dysuria Musculoskeletal: Denies: Joint Pain, Joint Tenderness Skin: Denies: Rash, Wounds Neurological: Denies: Numbness, Tingling, Focal weakness Psychiatric: Denies: Anxiety, Depression, Homicidal Ideations, Suicidal Ideations Hematologic/ Lymphatic: Denies: Easy Bruising, Easy Bleeding VTE Information - Inpt Only VTE Present on Admission: No VTE Mechan Device Prophylaxis: SCD's, None VTE Pharm Prophylaxis ordered?: No Patient Problems: Active and Suspected Problems (Last Reviewed 04/13/19 @ 02:32 by Ambrose Gonzalez MD) Acute blood loss anemia (Acute) Hyperbilirubinemia (Acute) Pancreatic mass (Acute) Jaundice (Acute) Anemia (Acute) - Physical Exam General: Alert, Oriented x3, Cooperative HEENT: Atraumatic, PERRLA, EOMI, Normocephalic Neck: Supple, No JVD, Negative Carotid Bruits Lungs: Clear to auscultation, Normal air movement Cardiovascular: Regular rate, No murmurs Abdomen: Bowel Sounds Present, Soft, Tender - Mild Extremities: No edema, Capillary Refill Less than 3 Seconds Skin: No breakdown, - - Jaundice Musculoskeletal: No Tenderness to Palpation of Joints or Extremities Neurological: Cranial nerves II-XII grossly intact Psych/Mental Status: Normal Affect, Appropriate Vital Signs Temp Pulse Resp BP Pulse Ox 99.1 F 84 16 129/47 H 98 04/12/19 22:43 04/12/19 22:43 04/12/19 22:43 04/12/19 22:43 04/12/19 22:43 Oxygen Delivery Method Room Air Weight: 81.2 kg Body Mass Index (BMI) 30.7 Intake and Output for Last 24 Hours 04/10/19 04/11/19 04/12/19 23:59 23:59 23:59 Intake Total 400 / 400 Balance 400 / 400 Microbiology Past 72 Hours 04/12/19 18:05 Stool Occult Blood (SANJUANITA) - Final Stool Laboratory Tests Past 24 Hrs 04/12/19 04/12/19 04/12/19 16:11 16:11 16:40 WBC 7.7 RBC 2.21 L Hgb 5.5 L* Hct 18.0 L MCV 81.4 MCH 24.9 L MCHC 30.6 L RDW 16.4 H RDW Differential 48.8 H Plt Count 294 MPV 11.4 Immature Gran % (Auto) 0.800 Neut % (Auto) 76.4 H Lymph % (Auto) 15.3 L [place] % (Auto) 6.5 Eos % (Auto) 0.7 Baso % (Auto) 0.3 Absolute Neuts (auto) 5.9 Absolute Lymphs (auto) 1.17 Total Counted Not Reportable Sodium 138 Potassium 3.2 L Chloride 105 Carbon Dioxide 24.0 Anion Gap 9 BUN 17 Creatinine 0.58 Estim Creat Clear Calc 87.96 Est GFR (MDRD) Af Amer 135 Est GFR (MDRD) Non-Af 111 BUN/Creatinine Ratio 29.1 H Glucose 140 H Calcium 8.0 L Total Bilirubin 5.40 H Direct Bilirubin 4.76 H AST 42 H ALT 149 H Alkaline Phosphatase 273 H Total Protein 5.8 L Albumin 2.6 L Globulin 3.2 Lipase 135 Urine Color Yellow Urine Clarity Clear Urine pH 6.5 Ur Specific [place] 1.005 Urine Protein Negative Urine Glucose (UA) Normal Urine Ketones Negative Urine Occult Blood 10 H Urine Nitrite Positive H Urine Bilirubin 3 H Urine Urobilinogen 1 H Ur Leukocyte Esterase 100 H Urine RBC 0 SEEN Urine WBC 0-5 SEEN Ur Squamous Epith Cells 0 SEEN Urine Bacteria 2+ Urine Mucus 0 SEEN Blood Type Antibody Screen Crossmatch 04/12/19 16:57 WBC RBC Hgb Hct MCV MCH MCHC RDW RDW Differential Plt Count MPV Immature Gran % (Auto) Neut % (Auto) Lymph % (Auto) [place] % (Auto) Eos % (Auto) Baso % (Auto) Absolute Neuts (auto) Absolute Lymphs (auto) Total Counted Sodium Potassium Chloride Carbon Dioxide Anion Gap BUN Creatinine Estim Creat Clear Calc Est GFR (MDRD) Af Amer Est GFR (MDRD) Non-Af BUN/Creatinine Ratio Glucose Calcium Total Bilirubin Direct Bilirubin AST ALT Alkaline Phosphatase Total Protein Albumin Globulin Lipase Urine Color Urine Clarity Urine pH Ur Specific [place] Urine Protein Urine Glucose (UA) Urine Ketones Urine Occult Blood Urine Nitrite Urine Bilirubin Urine Urobilinogen Ur Leukocyte Esterase Urine RBC Urine WBC Ur Squamous Epith Cells Urine Bacteria Urine Mucus Blood Type O NEGATIVE Antibody Screen NEGATIVE Crossmatch See Detail Assessment/Plan All Active Problems (Last Reviewed 04/13/19 @ 02:32 by Ambrose Gonzalez MD) Malignant neoplasm of right female breast (Acute) BRCA gene positive (Acute) BRCA1 gene mutation positive (Acute) Breast cancer, right (Acute) Breast lump (Acute) Tinea versicolor (Acute) Uterovaginal prolapse, incomplete (Acute) Rectocele (Acute) Mass of chest wall, left (Acute) Acute blood loss anemia (Acute) Hyperbilirubinemia (Acute) Pancreatic mass (Acute) Jaundice (Acute) Anemia (Acute) The patient is a 59 year old F with a significant history of Obesity; breast cancer initially with lumpectomy, chemotherapy and radiation, and following a recurrence, bilateral mastectomy and hysterectomy who presented to the emergency department with malaise; jaundice; dark stools; craving for ice; fatigue; and itchiness and found to have severe anemia and radiographic evidence of 5 cm pancreatic tail mass; intrahepatic biliary duct dilatation consistent with acute blood loss anemia; biliary obstruction and pancreatic mass. Acute blood loss anemia On presentation her hemoglobin was 5.5. Noted to have low RBC and hematocrit. Her hemoglobin about 4 months ago was 11.6. Her baseline hemoglobin is 12-13. Her BUN is not elevated which argue against upper GI bleed. However upper GI bleed cannot be ruled out. Two units of packed red blood was ordered at the emergency department and transfusion was begun. Continue blood transfusion. Check H&H 1 hour after transfusion. Received IV fluid hydration in emergency department. Continue IV fluid hydration. We will start patient on Protonix bolus and drip. We will keep patient n.p.o. Repeat fecal occult blood test ordered. General surgery consult to consider EGD and ERCP. Hypokalemia On presentation potassium was 3.2 [address] CT of abdomen and pelvis showed 5 cm pancreatic tail mass. CT was independently reviewed. I agree with radiologist interpretation. Also with jaundice; probable obstructive jaundice; and malaise. Oncology consult. Patient is allergic to morphine. She gets hives with morphine. Was given a one-time dose of oxycodone. However patient now is n.p.o. For now we will give as needed IV Dilaudid. Will get CA-19-9 for baseline Elevated Liver enzymes Of note patient has elevated liver enzymes and alkaline phosphatase as well as hyperbilirubinemia. Likely from biliary obstruction. General surgery consult to consider ERCP. Abnormal urinalysis No urinary symptoms except that her urine is dark. Will not initiate antibiotics at this time. DVT Prophylaxis Low chemical chemoprophylaxis at this time because of low hemoglobin with possible bleed.. SCD ordered. Code Visit Inpatient E&M: 28163 Init Hosp L3
[2019-04-13] VITALS (8 sets, daily range): BP systolic 126–136; BP diastolic 50–69; PULSE 77–87; RESP 16–18; TEMP 36.7–37; O2SAT 95–100
[2019-04-13] MEDS: oxyCODONE 5 MG Tablet PO (01:08)
[2019-04-13] MEDS: MELATONIN 3 MG TABLET PO (01:08)
[2019-04-13 05:06] LABS: Hemoglobin 7.3 g/dl (12.0-15.0)
[2019-04-13 05:21] LABS: Anion Gap 6 (5-15); BUN 10 mg/dL (7-18); BUN/Creat Ratio 17.8 RATIO (10-20); Chloride 113 mmol/L (98-107); Creatinine, Serum 0.56 mg/dL (0.55-1.02); EST Glomerular Filtration Rate 116 mL/min (>60); Est Glom Filt Rate - Afr Amer 141 mL/min (>60); Glucose 116 mg/dL (74-106); Potassium 4.5 mmol/L (3.5-5.1); Sodium Level 144 mmol/L (136-145)
[2019-04-13] MEDS: 0.9% Normal Saline 1,000 ML 150 ML IV (06:10)
--- NOTE | 2019-04-13 08:58 | CASEMGMT ---
Addendum entered by Mar Hansen 04/13/19 09:38: Per Dr. Lu, pt will need to go to a larger hospital such as [facility]. Call to Corky and Franci states that [facility] is out of network but they can get authorization set up thru [facility] and it can then be viewed as in-network. Dr. Lu updated at this time, voices understanding. Dr. Lu called [facility] and they state that pt can be transferred to [facility] as they have the appropriate surgeon there for pt at this time. Sal VASQUEZ CM Original Note: According to [facility] website, the following are in-network tertiary facilities: [facility], [facility], [facility], and [facility]. Sal VASQUEZ CM
[2019-04-13 09:35] LABS: LDH 216 U/L (84-246)
[2019-04-13] MEDS: Acetaminophen 325 MG Tablet 650 MG PO (09:56)
[2019-04-13 10:23] LABS: Hematocrit 24.5 % (37-47); Hemoglobin 7.8 g/dl (12.0-15.0)
--- NOTE | 2019-04-13 11:16 | PCM.DC.SUM ---
Discharge Date and Diagnosis - Problem List Patient Problems: Active and Suspected Problems (Last Reviewed 04/13/19 @ 04:37 by Ambrose Gonzalez MD) Acute blood loss anemia (Acute) Hyperbilirubinemia (Acute) Pancreatic mass (Acute) Jaundice (Acute) Anemia (Acute) Date of Admission: 04/12/19 Date of Discharge: 04/13/19 - Primary Discharge Diagnosis Active and Suspected Problems (Last Reviewed 04/13/19 @ 04:37 by Ambrose Gonzalez MD) Acute blood loss anemia (Acute) Hyperbilirubinemia (Acute) Pancreatic mass (Acute) Jaundice (Acute) Anemia (Acute) - Secondary Discharge Diagnosis Chronic Problems (Last Reviewed 04/13/19 @ 04:37 by Ambrose Gonzalez MD) Cancer of left breast (Chronic) History of right breast cancer (Chronic) 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 A 5 cm pancreatic tail mass. 2. Marked intrahepatic biliary duct dilation, possibly due to lymph node or choledochal /metastasis. Dr. Chase discussed the findings with Dr. Bailey at 6:56 PM. N.B. : The above information has been verbally conveyed by Arleen Chase MD to Dr. Devi Bailey MD, on 04/12/2019 18:57:01 (ET). Electronically Signed: Arleen Chase MD at 18:58 EDT Tel , Service support , ADDENDUM: 04/12/19 3816 IMPRESSION: 1. A 5 cm pancreatic tail mass. 2. Marked intrahepatic biliary duct dilation, possibly due to lymph node or choledochal /metastasis. Dr. Chase discussed the findings with Dr. Bailey at 6:56 PM. N.B. : The above information has been verbally conveyed by Arleen Chase MD to Dr. Devi Bailey MD, on 04/12/2019 18:57:01 (ET). Electronically Signed: Arleen Chase MD at 18:58 EDT Tel , Service support , Clay Palmer MD: general surgery Operations: None, - Procedures: None Summary of Care Provided: The patient is a 59 year old F with a week history of jaundice and several week history of pruritus. Patient presented to the emergency room and had her bilirubinemia, total was 5.4 and direct was 4.76. AST was 2 and ALT was 149. Patient had a CAT scan showed a 5 cm mass in the pancreatic tail and market intrahepatic biliary duct dilation possibly due to lymph node or metastasis. Patient was brought in to see Dr. Palmer of general surgery, could do an ERCP to alleviate the biliary obstruction. He saw the images today and felt the patient be best suited for tertiary facility. Clarified to see if I can general would be feasible given that her insurance would not authorize without appeal going to [facility] and the other larger institutions. He states that that would be sufficient. I spoke with Dr. Stevenson, a hospitalist at [facility], explained the case and patient was accepted by Dr. Stevenson. Additionally, patient did have a hemoglobin of 5.5. She was transfused 2 units packed red blood cells and her hemoglobin is stable at 7.8. Patient denies any acute blood loss in his father that this anemia is likely more indolent nature. . I had a lengthy conversation with the patient and her that her insurance did not immediately authorize transfer to a larger tertiary facility, such as [facility]. And stated that you not be happy to contact [facility] but explained to them that they may be financially responsible because it would be out of network without an authorized appeal. The was more reluctant than the but explained that if it is felt that patient would need to be transferred [facility] from [facility] that they could certainly do so but certainly would get insurance authorization before doing so. [] Patient Problems: Active and Suspected Problems (Last Reviewed 04/13/19 @ 04:37 by Ambrose Gonzalez MD) Acute blood loss anemia (Acute) Hyperbilirubinemia (Acute) Pancreatic mass (Acute) Jaundice (Acute) Anemia (Acute) - Physical Exam General: Alert, No apparent distress HEENT: Atraumatic, Normocephalic, - - Scleral icterus Oral: Moist Mucosa, No Gingival or Mucosal Lesions/ Ulcerations Neck: No Nodes, Thyroid Normal Size and Texture Lungs: Clear to auscultation, Normal air movement, No rhonchi, No wheeze Cardiovascular: Regular rate, Regular Rhythm, Normal S1, Normal S2 Abdomen: Bowel Sounds Present, Soft, Non Tender, Non-Distended, No Hepato-splenomegaly Extremities: No edema, No Calf Tenderness Skin: No rashes, No breakdown Psych/Mental Status: Normal Affect, Appropriate Vital Signs Temp Pulse Resp BP Pulse Ox 36.7 C 77 18 132/50 H 100 04/13/19 09:48 04/13/19 09:48 04/13/19 10:00 04/13/19 09:48 04/13/19 09:48 Oxygen Delivery Method Room Air Weight: 81.2 kg Body Mass Index (BMI) 30.7 Intake and Output for Last 24 Hours 04/11/19 04/12/19 04/13/19 23:59 23:59 23:59 Intake Total 1040 / 1040 972 / 972 Balance 1040 / 1040 972 / 972 Microbiology Past 72 Hours 04/12/19 18:05 Stool Occult Blood (SANJUANITA) - Final Stool Laboratory Tests Past 24 Hrs 04/12/19 04/12/19 04/12/19 16:11 16:11 16:40 WBC 7.7 RBC 2.21 L Hgb 5.5 L* Hct 18.0 L MCV 81.4 MCH 24.9 L MCHC 30.6 L RDW 16.4 H RDW Differential 48.8 H Plt Count 294 MPV 11.4 Immature Gran % (Auto) 0.800 Neut % (Auto) 76.4 H Lymph % (Auto) 15.3 L Dickenson % (Auto) 6.5 Eos % (Auto) 0.7 Baso % (Auto) 0.3 Absolute Neuts (auto) 5.9 Absolute Lymphs (auto) 1.17 Total Counted Not Reportable Haptoglobin Sodium 138 Potassium 3.2 L Chloride 105 Carbon Dioxide 24.0 Anion Gap 9 BUN 17 Creatinine 0.58 Estim Creat Clear Calc 87.96 Est GFR (MDRD) Af Amer 135 Est GFR (MDRD) Non-Af 111 BUN/Creatinine Ratio 29.1 H Glucose 140 H Calcium 8.0 L Total Bilirubin 5.40 H Direct Bilirubin 4.76 H AST 42 H ALT 149 H Alkaline Phosphatase 273 H Lactate Dehydrogenase Total Protein 5.8 L Albumin 2.6 L Globulin 3.2 Lipase 135 CA 19-9 Antigen Urine Color Yellow Urine Clarity Clear Urine pH 6.5 Ur Specific [place] 1.005 Urine Protein Negative Urine Glucose (UA) Normal Urine Ketones Negative Urine Occult Blood 10 H Urine Nitrite Positive H Urine Bilirubin 3 H Urine Urobilinogen 1 H Ur Leukocyte Esterase 100 H Urine RBC 0 SEEN Urine WBC 0-5 SEEN Ur Squamous Epith Cells 0 SEEN Urine Bacteria 2+ Urine Mucus 0 SEEN Blood Type Antibody Screen Crossmatch 04/12/19 04/13/19 04/13/19 16:57 04:40 04:40 WBC RBC Hgb 7.3 L Hct 23.0 L MCV MCH MCHC RDW RDW Differential Plt Count MPV Immature Gran % (Auto) Neut % (Auto) Lymph % (Auto) Dickenson % (Auto) Eos % (Auto) Baso % (Auto) Absolute Neuts (auto) Absolute Lymphs (auto) Total Counted Haptoglobin Sodium 144 Potassium 4.5 Chloride 113 H Carbon Dioxide 25.0 Anion Gap 6 BUN 10 Creatinine 0.56 Estim Creat Clear Calc 91.10 Est GFR (MDRD) Af Amer 141 Est GFR (MDRD) Non-Af 116 BUN/Creatinine Ratio 17.8 Glucose 116 H Calcium 8.0 L Total Bilirubin Direct Bilirubin AST ALT Alkaline Phosphatase Lactate Dehydrogenase Total Protein Albumin Globulin Lipase CA 19-9 Antigen Urine Color Urine Clarity Urine pH Ur Specific [place] Urine Protein Urine Glucose (UA) Urine Ketones Urine Occult Blood Urine Nitrite Urine Bilirubin Urine Urobilinogen Ur Leukocyte Esterase Urine RBC Urine WBC Ur Squamous Epith Cells Urine Bacteria Urine Mucus Blood Type O NEGATIVE Antibody Screen NEGATIVE Crossmatch See Detail 04/13/19 04/13/19 04/13/19 04:40 10:05 10:05 WBC RBC Hgb 7.8 L Hct 24.5 L MCV MCH MCHC RDW RDW Differential Plt Count MPV Immature Gran % (Auto) Neut % (Auto) Lymph % (Auto) Dickenson % (Auto) Eos % (Auto) Baso % (Auto) Absolute Neuts (auto) Absolute Lymphs (auto) Total Counted Haptoglobin Sodium Potassium Chloride Carbon Dioxide Anion Gap BUN Creatinine Estim Creat Clear Calc Est GFR (MDRD) Af Amer Est GFR (MDRD) Non-Af BUN/Creatinine Ratio Glucose Calcium Total Bilirubin Direct Bilirubin AST ALT Alkaline Phosphatase Lactate Dehydrogenase 216 Total Protein Albumin Globulin Lipase CA 19-9 Antigen Pending Urine Color Urine Clarity Urine pH Ur Specific [place] Urine Protein Urine Glucose (UA) Urine Ketones Urine Occult Blood Urine Nitrite Urine Bilirubin Urine Urobilinogen Ur Leukocyte Esterase Urine RBC Urine WBC Ur Squamous Epith Cells Urine Bacteria Urine Mucus Blood Type Antibody Screen Crossmatch 04/13/19 10:05 WBC RBC Hgb Hct MCV MCH MCHC RDW RDW Differential Plt Count MPV Immature Gran % (Auto) Neut % (Auto) Lymph % (Auto) Dickenson % (Auto) Eos % (Auto) Baso % (Auto) Absolute Neuts (auto) Absolute Lymphs (auto) Total Counted Haptoglobin Pending Sodium Potassium Chloride Carbon Dioxide Anion Gap BUN Creatinine Estim Creat Clear Calc Est GFR (MDRD) Af Amer Est GFR (MDRD) Non-Af BUN/Creatinine Ratio Glucose Calcium Total Bilirubin Direct Bilirubin AST ALT Alkaline Phosphatase Lactate Dehydrogenase Total Protein Albumin Globulin Lipase CA 19-9 Antigen Urine Color Urine Clarity Urine pH Ur Specific [place] Urine Protein Urine Glucose (UA) Urine Ketones Urine Occult Blood Urine Nitrite Urine Bilirubin Urine Urobilinogen Ur Leukocyte Esterase Urine RBC Urine WBC Ur Squamous Epith Cells Urine Bacteria Urine Mucus Blood Type Antibody Screen Crossmatch Discharge Diet: - - clears Home Medications: Medications to take at Discharge Hydroxyzine HCl 25 mg PO TID 04/12/19 Primary Care Physician: Edna Rapp NP-C [Primary Care Provider] - Disposition: Acute care Hospital Minutes spent on discharge:: 45 Patient Condition:: Stable Medical Necessity - Tobacco Use Smoking Status: Never smoker Meaningful Use Info Meaningful Use Diagnoses (Choose all that apply): None applicable Code Visit Inpatient E&M: 72761 Disch Hosp
--- NOTE | 2019-04-13 12:05 | NURSING ---
CALLED REPORT TO TAMIKO VASQUEZ AT [facility].
[2019-04-15 17:27] LABS: Carbohydrate AG 19-9 9584 U/mL (0-35)
[2019-04-15 17:29] LABS: Haptoglobin 107 mg/dL (34-200)
== END 2019-04-13 12:27 | disposition short-term general hospital (02) | DRG 812 ==
LOC: ED 16:30 → PCU 22:02
PROVIDERS: Admitting Provider Hospitalist; Emergency Provider Emergency Medicine; Family Provider Nurse Practitioner Primary Care; PCP Nurse Practitioner Primary Care; Referring Provider Hospitalist
DX: D62 Acute posthemorrhagic anemia (principal); R17 Unspecified jaundice; E87.6 Hypokalemia; K86.9 Disease of pancreas, unspecified; E80.6 Other disorders of bilirubin metabolism; Z80.3 Family history of malignant neoplasm of breast; Z85.3 Personal history of malignant neoplasm of breast
CPT/HCPCS: 36415; 74177; 80048; 80076; 81001; 82274; 83010; 83615; 83690; 85014; 85018; 85025; 86301; 86850; 86900; 86920; 86922; 99285; J7030; J7040; P9016; Q9967; A4216; J3490

== ENCOUNTER 2019-11-09 01:00 | Emergency (ER) | payer OTHER, SELFPAY ==
[2019-04-12 22:46] VITALS: BMI 30.7
[2019-11-09] VITALS (24 sets, daily range): BP systolic 78–197; BP diastolic 51–119; PULSE 75–104; RESP 10–24; TEMP 34.6–36.1; O2SAT 16–100; BMI 32.8
[2019-11-09] MEDS: 0.9% Normal Saline 1,000 ML 1000 ML IV ×2 (01:01→02:15)
--- NOTE | 2019-11-09 01:22 | ED.RN ---
RN CALLED FOR EKG, PULLED OLD EKGS FOR
[2019-11-09 01:31] LABS: Bedside Glucose 172 mg/dL (70-110)
--- NOTE | 2019-11-09 01:33 | CT_ITS ---
STUDY: CT BRAIN WITHOUT CONTRAST REASON FOR EXAM: Female, 59 years old. UNRESPONSIVE. Hx of bilateral breast cancer with mastectomies, pancreatic cancer. RADIATION DOSAGE (If Supplied By Facility): CTDIvol = ( 44.99 ) mGy, DLP = ( 796.11 ) mGycm TECHNIQUE: Transaxial CT imaging of the brain was performed without administration of intravenous contrast material. Individualized dose optimization techniques were used for this CT. COMPARISON: No relevant priors. FINDINGS: Normal soft tissue structures. Normal calvarium. There is mild cerebral atrophy with widening of the extra-axial spaces and ventricular dilatation. There are areas of decreased attenuation within the white matter tracts of the supratentorial brain, consistent with microvascular disease changes. Normal basal ganglia and thalami. Normal brainstem. Normal cerebellum. There is no intracranial hemorrhage. There are no findings of an acute ischemic infarction. Opacification of the left sphenoid sinus, remainder of the paranasal sinuses are clear. CT/Brain/Head without Contrast IMPRESSION: Mild involutional changes along with microangiopathic white matter disease. No acute intracranial hemorrhage or space-occupying lesion. Electronically Signed: Isabel Hardy MD at 2:20 EST , Service support ,
--- NOTE | 2019-11-09 01:33 | EKG12_ITS ---
Test Reason : UNRESPONSIVE Blood Pressure : / mmHG Vent. Rate : 085 BPM Atrial Rate : 085 BPM P-R Int : 188 ms QRS Dur : 076 ms QT Int : 394 ms P-R-T Axes : 000 -10 061 degrees QTc Int : 468 ms Sinus rhythm with occasional Premature ventricular complexes and Premature atrial complexes Nonspecific ST abnormality Abnormal ECG Confirmed by VANNA HERNANDEZ, MICHELINE ([id number]), news video editor MARTÍN QUIROZ ([id number]) on 11/10/2019 8:18:44 AM Referred By: THANH Confirmed By:MICHELINE PRABHAKAR MD
--- NOTE | 2019-11-09 01:33 | RAD_ITS ---
STUDY: X-RAY CHEST REASON FOR EXAM: Female, 59 years old. et and og tube placements TECHNIQUE: Single AP portable view of the chest. COMPARISON: None. FINDINGS: The endotracheal tube has the tip 2.5 cm above roque. The nasogastric tube has the tip projecting over the gastric body. There is a right-sided chest port with the tip in the distal SVC. The lungs are normally expanded with diffuse airspace opacities, fullness of the central markings and Manuel B-lines suggestive of pulmonary edema. Differential diagnosis includes diffuse pneumonia. There is no demonstrated pleural abnormality. There is mild cardiac enlargement. Normal mediastinum and ayesha. Normal visualized pulmonary arteries. Normal visualized aortic arch and descending thoracic aorta. Normal visualized thoracic spine. Normal visualized ribs, clavicles, and shoulders. Right upper quadrant surgical clips. RAD/Chest 1 View (Portable) IMPRESSION: Diffuse pulmonary edema. Differential diagnosis includes pneumonia. Lines and tubes as described above. Electronically Signed: Isabel Hardy MD at 1:57 EST , Service support ,
--- NOTE | 2019-11-09 01:34 | CT_ITS ---
STUDY: CTA CHEST REASON FOR EXAM: Female, 59 years old. UNRESPONSIVE. Hx of bilateral breast cancer with mastectomies, pancreatic cancer. ? PE RADIATION DOSAGE (If Supplied By Facility): CTDIvol = ( 12.34 ) mGy, DLP = ( 543.40 ) mGycm TECHNIQUE: The examination was performed with the intravenous administration of Isovue 370 100ml. Post-processing of the angiographic images was performed, with multiplanar reformation and 3D reconstruction. Individualized dose optimization techniques were used for this CT. COMPARISON: None. FINDINGS: There are endotracheal and nasogastric tubes in place. Normal enhancement of the main pulmonary artery and right and left pulmonary arteries. Normal enhancement of the bilateral peripheral pulmonary arteries. There is no demonstrated pulmonary embolism. Normal thoracic aorta and visualized great vessels. There is no demonstrated aortic dissection. Heart is mildly enlarged with mild to moderate pericardial effusion. Normal mediastinum. Normal hilar regions. Normal visualized trachea and bronchi. The lungs are well expanded. Diffuse airspace opacities demonstrated compatible with pneumonia. Mild right-sided pleural effusion. Normal chest wall structures. Normal osseous structures. Upper abdomen: There is mild to moderate ascites. Gallbladder is incompletely distended with contrast within the lumen. There is a biliary stent in place with central pneumobilia. There is nonspecific bilateral perinephric stranding. There is hypertrophy of the bilateral adrenal glands. Fullness of the pancreatic tail seen, area not entirely included in the [id number]. CT/CTA Chest W/WO Contrast IMPRESSION: Negative CTA chest examination, without a demonstrated pulmonary embolism or arterial dissection. Diffuse airspace disease suggestive of pneumonia with right pleural effusion. Electronically Signed: Isabel Hardy MD at 2:45 EST , Service support ,
--- NOTE | 2019-11-09 01:40 | ED.VIS.GEN ---
History of Present Illness Chief Complaint: CPR Informant: Family, Biological Sciences Instructor Narrative: EMS was called for patient being unresponsive. When they arrived she had a strong radial pulse and was breathing. Initial rhythm showed a sinus rhythm. This was only a 1-lead, lead II strip. There was no obvious ACS features on that lead. After they got into the ambulance the patient went pulseless and CPR was started. 3 rounds of epinephrine and a bicarb were given through a right humerus IO. CPR was continued and I-gel was placed. Patient arrived in the emergency department roughly 15 to 20 minutes after chest compressions began. Upon arrival in the emergency department the patient appeared to be in PEA. On bedside ultrasound there were some atrial contractions but no significant or effective ventricular contractions noted. The IJ was exchanged for an 8 oh endotracheal tube. Her right chest port was accessed. She received epinephrine and the patient had ROSC. Patient began to take some spontaneous breaths. Her skin color improved. Initially the patient was having problems oxygenating but not ventilating. A PEEP valve was applied and with ROSC oxygenation improved. Family was at bedside. They note that she is a full code. She has a history of stage IV pancreatic cancer and they have been discussing palliative care and hospice. The tells me that the past couple days the patient has been hypertensive. She was in emergency department at [facility] was started on Lasix. He tells me that she went to have chemotherapy a couple days ago but noted that she was anemic so they gave her a couple units of blood in the ED visit was after that. He reports that she has had a prior DVT in the left leg was started on blood thinners but it was discontinued due to GI bleeding. She is not currently on any blood thinners. Past Medical History - Allergies and Home Meds Allergies/Adverse Reactions: Allergies morphine Allergy (Verified 11/09/19 01:37) Jerica Primary Care Physician: Edna Rapp NP-C [Primary Care Provider] - Surgical History: hysterectomy Smoking Status: Never smoker - Family History Maternal Family History: Family History (Last Reviewed 04/13/19 @ 04:37 by Ambrose Gonzalez MD) Sister Breast cancer Sister Breast cancer Family History: Reports: Unknown Review of Systems ROS: Unable to Obtain Physical Exam Vital Signs/Narrative: Vital Signs Pulse Pulse Pulse Pulse Pulse Pulse Resp 11/09/19 01:38 96 14 11/09/19 01:37 11/09/19 01:01 104 H 95 93 89 90 Resp Resp Resp Resp BP BP BP 11/09/19 01:38 153/99 H 11/09/19 01:37 11/09/19 01:01 21 H 17 15 19 H 113/72 110/62 BP BP Pulse Ox 11/09/19 01:38 96 11/09/19 01:37 97 11/09/19 01:01 111/58 L 122/70 H Inital Vital Signs reviewed: Yes General: Well nourished, Well developed, Obese Head: Normocephalic, Atraumatic Eyes: - - Pupils at 3 mm bilaterally nonreactive ENT: Moist mucous membranes, No rhinorrhea Neck: Supple, Nontender Cardiovascular: - - No palpable pulse Respiratory: Rales - Rails with bag valve respiration Abdomen: Soft, Nondistended Extremities: Edema Skin: No rash, Cyanosis Neurological: Coma Diagnostic/Tx/Re-eval - Medical Decision Making 8 oh endotracheal tube was placed by this physician on the first attempt without any difficulty. Equal breath sounds were noted bilaterally. Tube was secured at 22 cm. OG tube was placed. EKG shows a sinus rhythm at a rate of [address] changes. No significant change from EKG dated January 24 2018. The chest port was accessed as well as a right AC 20-gauge was placed. Patient was taken to CT scanner for CT the head and CTA of the chest. CT the brain showed no acute findings. CTA chest showed pulmonary edema but no pulmonary embolism. While in CT the patient began to breathe over the vent and become hypertensive. She received a dose of Versed and fentanyl until she could be brought back to the resuscitation room. Then she was placed on a fentanyl drip. Later we added a propofol drip. Patient began to have some apparent myoclonic jerks where her arms and her legs would contract and her eyes were open. These were very regularly occurring every 30 seconds to a minute. A gram of Keppra was ordered. She received 2 L of IV fluids and then ran at maintenance. Her acid-base status is improving on her second ABG. In discussing with the , all of her care seems to be given at [facility]. I spoke with [facility] and they currently do not have bed availability in their ICU tonight. Patient has [employer] health insurance. I called [facility] and they do not have any ICU beds available tonight either. Family was inquiring about [facility]. They inquired whether or not he would be covered by their insurance. I informed them I do not have that answer. I contacted [facility]. He has been accepted. We have had to titrate her sedation. I revisited CODE STATUS with the a couple of times. She is a full code. She will be life flighted to [facility]. - Critical Care Time Critical care time (excluding procedures): 30-74 minutes - 50 minutes ED Disposition - Plan for ED Patient: Disposition: Acute Care Hospital - Other Diagnosis: Cardiac arrest, Signs of return of spontaneous circulation, Airway intubation performed without difficulty, Myoclonic jerking Referrals: Edna Rapp, PULMONOLOGY PHYSICIAN-C [Primary Care Provider] -
[2019-11-09 01:42] LABS: Hematocrit 35.1 % (37-47); Hemoglobin 9.8 g/dL (12.0-15.0); Mean Corp Hgb Conc 27.9 g/dL (32-36); Mean Corpuscular Hgb 30.9 pg (27.0-32.0); Mean Corpuscular Volume 110.7 fL (81-99); Mean Platelet Vol. 12.3 fl (6.2-12.0); POSITIVE COUNT YES; POSITIVE DIFFERENTIAL YES; POSITIVE MORPHOLOGY YES; Platelet Count 166 K/mm3 (150-450); RBC Distribution Width CV 23.1 % (11.6-14.6); RBC Distribution Width SD 89.3 fl (35.1-43.9); Red Blood Count 3.17 M/mm3 (4.2-5.4)
[2019-11-09 01:44] LABS: Differential Indicated MANUAL DIFF
[2019-11-09 01:49] LABS: Partial Thromboplast Time 70.5 Seconds (24.1-36.2); Prothrombin Time (Protime)PT. 22.5 SECONDS (11.7-14.9)
[2019-11-09] MEDS: Midazolam 5 MG/ML Syringe 4 MG IV (01:55)
[2019-11-09] MEDS: fentaNYL 100 MCG/2 ML Ampul IV (01:55)
[2019-11-09 01:58] LABS: ALB/GLOB Ratio 0.6 RATIO (0.9-2.4); AST(SGOT) 43 U/L (15-37); Alanine Aminotransfer ALT/SGPT 31 U/L (13-56); Albumin, Serum 1.9 g/dL (3.2-5.0); Alkaline Phosphatase 99 U/L (45-117); Anion Gap 16 (5-15); BUN 28 mg/dL (7-18); BUN/Creat Ratio 13.1 RATIO (10-20); Calcium,Total 7.6 mg/dL (8.5-10.1); Chloride 115 mmol/L (98-107); Creatinine, Serum 2.14 mg/dL (0.55-1.02); EST Glomerular Filtration Rate 25 mL/min (>60); Est Glom Filt Rate - Afr Amer 30 mL/min (>60); Globulin 3.1 g/dL (2.2-4.2); Glucose 254 mg/dL (74-106); Potassium 5.6 mmol/L (3.5-5.1); Sodium Level 146 mmol/L (136-145)
[2019-11-09 02:07] LABS: Corrected WBC 12.6 K/mm3 (4.4-11.0); Eosinophil 1 % (0-5); Lymphocyte 34 % (19-41); Metamyelocyte 2 % (0-1); Monocyte 8 % (0-10); Myelocyte 1 (0-0); Neutrophil-Band 4 % (0-5); Neutrophil-Segmented 50 % (47-70); Nucleated Red Bld Cells,Manual 5 % (0-5); Total Cells Counted 100 (MANUAL DIFF)
[2019-11-09 02:08] LABS: Macrocytosis 3+; Platelet Estimate ADEQUATE (ADEQ); Red Cell Morphology N CHROM NORMAL (NORM C&C)
[2019-11-09 02:09] LABS: Schistocytes 1+
[2019-11-09 02:10] LABS: Absolute Lymphocyte Count 4.28 X10^3/uL (0.83-4.51); Absolute Neutrophil Count 6.8 X10^3/uL (2.0-7.7); Lymphocyte # 4.28 X10^3/ul (4.0)
[2019-11-09] MEDS: fentaNYL drip 100 ML 5 MCG IV (02:11)
[2019-11-09 02:15] LABS: Lactic Acid 14.8 mmol/L (0.4-1.9)
--- NOTE | 2019-11-09 02:15 | ED.RN ---
sheldon gomez lactic acid 14.8, made aware.
--- NOTE | 2019-11-09 02:35 | CPS ---
Critical results for ABG given to . pH 7.05.
[2019-11-09 02:36] LABS: Base Excess -16 mmol/L (-2 to +2); Bicarbonate 14.9 mmol/L (22-26); Blood Gas Specimen Type ART; FI02 60; Mode A-C; O2 Delivery Device Vent; PEEP 10; PO2 96 mmHG (75-100); RR 14; SITE R Brachial; SO2 93 % (95-99); Time Given 223; Total Carbon Dioxide 17 mmol/L; Vt 450; pH 7.05 (7.35-7.45)
[2019-11-09 02:49] LABS: Mucous, Urine 0 SEEN /hpf (<or=2+)
[2019-11-09 03:06] LABS: Color, Urine Amber (Yellow); Glucose, Dipstick 100 mg/dl (Normal); Ketone-Dipstick 5 mg/dl (Negative); Leukocyte Esterase-Dipstick 25 /ul (Negative); Nitrite-Dipstick Negative (Negative); Occult Blood-Urine 250 /ul (Negative); Protein-Dipstick 500 mg/dl (Negative); Specific Gravity, Urine 1.015 (1.002-1.030); Urine Bilirubin Dipstick Negative (Negative); Urine Clarity Cloudy (Clear); Urine Urobilinogen Normal (Normal); Urine pH 6.5 (5.0 - 8.0)
[2019-11-09] MEDS: 0.9% Normal Saline 1,000 ML 150 ML IV (03:14)
[2019-11-09 03:21] LABS: Bacteria 2+ /hpf (None Seen); Red Blood Cells-Urine > 100 SEEN /hpf (0-5); Squamous Epithelial Cells - UA 0-5 SEEN /hpf (5-10); Transitional Epithelial - Ur 0-5 SEEN /hpf (0-5); White Blood Cells 10-25 SEEN /hpf (0-5)
[2019-11-09] MEDS: Propofol 10MG/Ml 1,000 MG/100 ML Bottle 5.5 MG CONT INF (03:24)
[2019-11-09 04:11] LABS: Base Excess -9 mmol/L (-2 to +2); Bicarbonate 18.4 mmol/L (22-26); Blood Gas Specimen Type ART; FI02 100; Mode A-C; O2 Delivery Device Vent; PEEP 10; PO2 125 mmHG (75-100); RR 14; SITE R Brachial; SO2 98 % (95-99); Time Given 400; Total Carbon Dioxide 20 mmol/L; Vt 450; pH 7.24 (7.35-7.45)
[2019-11-09] MEDS: levETIRAcetam IV 1,000 MG/100 ML BAG 400 MG IV (04:13)
--- NOTE | 2019-11-09 04:38 | ED.RN ---
PT IS MAKING INVOLUNTARY MOVEMENTS WHERE BODY JERKS AND EYES OPEN 1-2 TIMES PER MINUTE. PT GIVEN MULTIPLE MEDICATIONS, MEDICATIONS HAVE BEEN TITRATED AND NO IMPROVEMENT. PHYSICIAN IS AWARE AND MONITORING.
[2019-11-09 13:31] LABS: Pathologist Review Reviewed
== END 2019-11-09 06:30 | disposition short-term general hospital (02) ==
PROVIDERS: Emergency Provider Emergency Medicine; PCP Nurse Practitioner Primary Care
DX: I46.9 Cardiac arrest, cause unspecified (principal); C25.9 Malignant neoplasm of pancreas, unspecified; G25.3 Myoclonus; I49.1 Atrial premature depolarization; E66.9 Obesity, unspecified; Z86.718 Personal history of other venous thrombosis and embolism
CPT/HCPCS: 31500; 31720; 36591; 36600; 51702; 70450; 71045; 71275; 80053; 81001; 82803; 82962; 83605; 84484; 85025; 85610; 85730; 92950; 93005; 94002; 96361; 96365; 96366; 96368; 96375; 99285; J7030; J7050; A4216